=== PATIENT | male | born 1995 ===

== ENCOUNTER → 2023-10-21 12:43 | Outpatient (REF) | payer OTHER, SELFPAY ==
[2023-10-21 14:58] LABS: Hepatitis B Surface Antibody Negative
[2023-10-21 15:48] LABS: Rubella Positive
[2023-10-23 15:57] LABS: Mumps Virus IgG Positive; Rubeola (Measles) IgG Equivocal; Varicella Zoster IgG (VZV) Positive
== END ==
LOC: OHS 12:43
PROVIDERS: ATTENDING PHYSICIAN Nurse Practitioner Family
DX: Z23 Encounter for immunization (principal)
CPT/HCPCS: 36415; 86706; 86735; 86762; 86765; 86787

== ENCOUNTER → 2023-10-23 12:09 | Outpatient (REF) | payer OTHER, SELFPAY | LOC: RAD 12:09 | PROVIDERS: ATTENDING PHYSICIAN Nurse Practitioner Family | DX: Z13.9 Encounter for screening, unspecified (principal) | CPT/HCPCS: 71046 ==